=== PATIENT | female | born 1970 | race Hispanic/Latino ===

== ENCOUNTER 2022-12-22 11:41 | Emergency (ER) | payer OTHER, SELFPAY ==
[2022-12-22 12:54] LABS: SARS-CoV-2 NAA Rapid Test DETECTED (NotDetected)
== END 2022-12-22 13:39 | disposition home or self-care (01) ==
LOC: CSHERS 11:41
DX: U07.1 COVID-19 (principal); E11.9 Type 2 diabetes mellitus without complications
CPT/HCPCS: 99283